=== PATIENT | female | born 1990 ===

== ENCOUNTER 2017-04-09 13:12 | Emergency (ER) | payer OTHER ==
[2017-04-09 13:15] VITALS: BMI 21.9
[2017-04-09 13:17] VITALS: RESP 18; TEMP 98
--- NOTE | 2017-04-09 13:41 | C.PDOC ---
History Of Present Illness 27 y/o female presents to the ED with complains of itchy rash to bilateral hands and forehead since yesterday. Pt took zyrtec without relief. Denies fever , SOB, cough, wheezing or any other complaints. Denies recent travel. Time Seen by Provider: 04/09/17 13:18 Chief Complaint (Nursing): Abnormal Skin Integrity History Per: Patient History/Exam Limitations: no limitations Onset/Duration Of Symptoms: Hrs Current Symptoms Are (Timing): Still Present Severity: Mild Recent travel outside of the [place]: No Past Medical History Reviewed: Historical Data, Nursing Documentation, Vital Signs Vital Signs: Last Vital Signs Temp 98 F 04/09/17 13:16 Pulse 65 04/09/17 13:16 Resp 18 04/09/17 13:16 BP 102/67 04/09/17 13:16 Pulse Ox 100 04/09/17 14:15 Family History: States: Unknown Family Hx - Social History Hx Alcohol Use: No Hx Substance Use: No - Immunization History Hx Tetanus Toxoid Vaccination: Yes Hx Influenza Vaccination: Yes Hx Pneumococcal Vaccination: No Review Of Systems Constitutional: Negative for: Fever, Chills ENT: Negative for: Throat Swelling Respiratory: Negative for: Cough, Shortness of Breath Skin: Positive for: Rash (hands and forehead) Physical Exam - Physical Exam Appears: Non-toxic, No Acute Distress Skin: Warm, Dry, Rash (urticarial rash to bilateral arms and forehead, sparing palms and soles of feet) Head: Atraumatic, Normacephalic Eye(s): bilateral: Normal Inspection Nose: Normal Oral Mucosa: Moist Throat: Normal, No Erythema Neck: Normal, Normal ROM, Supple Chest: Symmetrical Cardiovascular: Rhythm Regular, No Murmur Respiratory: Normal Breath Sounds, No Rales, No Rhonchi, No Stridor, No Wheezing Gastrointestinal/Abdominal: Soft, No Tenderness Extremity: Normal ROM, No Swelling Extremity: Bilateral: Atraumatic Neurological/Psych: Oriented x3, Normal Speech ED Course And Treatment O2 Sat by Pulse Oximetry: 100 (room air) Pulse Ox Interpretation: Normal Disposition - Disposition Referrals: [facility] [Outside] Disposition: HOME/ ROUTINE Disposition Time: 14:12 Condition: GOOD Additional Instructions: Follow up with the medical doctor within 1-2 days. Return if worsened. Prescriptions: DiphenhydrAMINE [Benadryl] 25 mg PO Q4H PRN #30 cap PRN Reason: Itching / Pruritus Famotidine [Pepcid] 20 mg PO BID #20 tab predniSONE [Prednisone] 20 mg PO BID #10 tab Instructions: Urticaria (ED) - Clinical Impression Clinical Impression: Urticaria - PA / HEALTHCARE CUSTOMER SERVICE / Resident Statement MD/DO has reviewed & agrees with the documentation as recorded. - Scribe Statement The provider has reviewed the documentation as recorded by the Lawson Conti All medical record entries made by the Lawson were at my direction and personally dictated by me. I have reviewed the chart and agree that the record accurately reflects my personal performance of the history, physical exam, medical decision making, and the department course for this patient. I have also personally directed, reviewed, and agree with the discharge instructions and disposition.
[2017-04-09 14:31] VITALS: BP 119/72; PULSE 68; O2SAT 99
== END 2017-04-09 14:31 | disposition home or self-care (01) ==
LOC: SUPCPDRO 13:12 → C.ER 13:12
DX: L50.9 Urticaria, unspecified (principal)